=== PATIENT | female | born 1995 | race Caucasian/White ===

== ENCOUNTER → 2016-08-15 | Outpatient (CLI) | payer BC ==
--- NOTE | 2016-08-15 17:06 | DIAGNOSTIC IMAGING REPORT ---
MRI THE RIGHT KNEE NO CONTRAST CLINICAL HISTORY: Right knee pain status post trauma COMPARISON STUDY: None FINDINGS: Imaging was performed the sagittal, coronal, and axial planes. There is marrow edema involving the posterior tibial plateau, consistent with a bone bruise. There is a bone bruise involving the lateral femoral condyle. There is a minimal joint effusion. No meniscal tears are visualized. The posterior cruciate ligament appears normal. The anterior cruciate ligament is torn. The patellar retinacular structures appear intact. The medial and lateral collateral ligaments appear intact. The patellar and quadriceps tendons appear intact. IMPRESSION: 1. Anterior cruciate ligament tear 2. No evidence of meniscal tear 3. Bone bruises involving the lateral femoral condyle and posterior tibial plateau Electronically signed by: Keith Jackson M.D. 08/15/2016 5:04 PM Dictated Date/Time: 08/15/2016 5:01 PM
== END | disposition home or self-care (01) ==
LOC: C.MRI 16:01
PROVIDERS: ATTEND Orthopaedic Surgery
DX: S83.511A Sprain of anterior cruciate ligament of right knee, initial encounter (principal); X58.XXXA Exposure to other specified factors, initial encounter